=== PATIENT | male | born 2000 | race Caucasian/White ===

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

== ENCOUNTER 2018-04-04 10:03 | Emergency (ER) | payer OTHER ==
[~2018-04-04] VITALS: Ht 185.4 cm; Wt 92.1 kg
[2018-04-04 10:18] VITALS: BP 116/58; Ht 185.4 cm; Wt 92.1 kg
== END 2018-04-04 10:40 | disposition home or self-care (01) ==
LOC: ED 10:03
DX: H10.12 Acute atopic conjunctivitis, left eye (principal); J45.909 Unspecified asthma, uncomplicated

== ENCOUNTER 2019-04-30 23:18 | Emergency (ER) | payer OTHER ==
[~2019-04-30] VITALS: Ht 185.4 cm; Wt 98.9 kg
[2019-04-30 23:24] VITALS: Ht 185.4 cm; Wt 98.9 kg
[2019-05-01 00:13] VITALS: BP 120/56
== END 2019-05-01 00:13 | disposition home or self-care (01) ==
LOC: ED 23:18
DX: M25.511 Pain in right shoulder (principal); M25.512 Pain in left shoulder; J45.909 Unspecified asthma, uncomplicated